=== PATIENT | male | born 1955 | race Caucasian/White ===

== ENCOUNTER 2018-11-08 18:08 | Emergency (ER) | payer OTHER ==
[~2018-11-08] VITALS: Ht 167.6 cm; Wt 77.1 kg
[2018-11-08] MEDS ORDERED: COZAAR100 MG (18:43)
[2018-11-08] MEDS ORDERED: [UNRECOGNIZED DRUG - OTHER] (18:44)
[2018-11-08] MEDS ORDERED: [UNRECOGNIZED DRUG - OTHER] (18:45)
[2018-11-08] MEDS ORDERED: MUCINEX DM ER1 EAC1 PO (22:11)
[2018-11-08] MEDS ORDERED: OSEL75CA PO (22:11)
[2018-11-08] MEDS ORDERED: KETO10TA2 PO (22:11)
[2018-11-08] MEDS ORDERED: FLONASE ALLERG9.9 ML NASAL (22:11)
[2018-11-08] MEDS ORDERED: AIRBORNE EFFER1 EACH PO (22:11)
[2018-11-08] MEDS ORDERED: TESSALON PERLE100 M1 PO (22:11)
== END 2018-11-08 22:18 | disposition home or self-care (01) ==
LOC: ER 18:08
DX: J11.1 Influenza due to unidentified influenza virus with other respiratory manifestations (principal); B34.9 Viral infection, unspecified; J32.8 Other chronic sinusitis